=== PATIENT | female | born 1975 | race Caucasian/White ===

== ENCOUNTER → 2018-04-08 | Outpatient (CLI) | payer BC ==
[2004-12-05 06:27] VITALS: TEMP 98
== END ==
LOC: MC.RAD 07:10
DX: Z12.31 Encounter for screening mammogram for malignant neoplasm of breast (principal)

== ENCOUNTER → 2018-04-12 | Outpatient (CLI) | payer BC ==
[2004-12-05 06:27] VITALS: TEMP 98
== END ==
LOC: MC.RAD 07:28
DX: R92.8 Other abnormal and inconclusive findings on diagnostic imaging of breast (principal)

== ENCOUNTER → 2019-06-08 | Outpatient (CLI) | payer BC ==
[2004-12-05 06:27] VITALS: TEMP 98
== END ==
LOC: MC.RAD 07:15
DX: Z12.31 Encounter for screening mammogram for malignant neoplasm of breast (principal)

== ENCOUNTER → 2020-06-11 | Outpatient (CLI) | payer BC ==
[2004-12-05 06:27] VITALS: TEMP 98
== END ==
LOC: MC.RAD 16:27
DX: Z12.31 Encounter for screening mammogram for malignant neoplasm of breast (principal); N64.89 Other specified disorders of breast

== ENCOUNTER → 2020-06-14 | Outpatient (CLI) | payer BC ==
[2004-12-05 06:27] VITALS: TEMP 98
== END ==
LOC: MC.RAD 09:00
DX: N60.02 Solitary cyst of left breast (principal)

== ENCOUNTER → 2020-12-16 | Outpatient (CLI) | payer BC ==
[2004-12-05 06:27] VITALS: TEMP 98
== END ==
LOC: MC.RAD 07:56
DX: N64.89 Other specified disorders of breast (principal); R92.8 Other abnormal and inconclusive findings on diagnostic imaging of breast

== ENCOUNTER → 2021-06-27 | Outpatient (CLI) | payer BC ==
[2004-12-05 06:27] VITALS: TEMP 98
== END ==
LOC: MC.RAD 06:54
DX: N64.89 Other specified disorders of breast (principal)